=== PATIENT | male | born 1955 | race Caucasian/White ===

== ENCOUNTER 2021-10-03 12:55 | Outpatient (CLI) | payer MEDICARE | END 2021-10-03 12:56 | disposition home or self-care (01) | LOC: TBSIIMAG 12:55 | PROVIDERS: ATTEND Family Medicine | DX: M96.1 Postlaminectomy syndrome, not elsewhere classified (principal); M48.061 Spinal stenosis, lumbar region without neurogenic claudication; M47.26 Other spondylosis with radiculopathy, lumbar region; Z98.890 Other specified postprocedural states | CPT/HCPCS: 72100; 72148; 82565 ==

== ENCOUNTER 2022-02-05 13:44 | Outpatient (CLI) | payer MEDICARE | END 2022-02-05 13:45 | disposition home or self-care (01) | LOC: BICCT 13:44 | PROVIDERS: ATTEND Nurse Practitioner | DX: Z12.2 Encounter for screening for malignant neoplasm of respiratory organs (principal); F17.210 Nicotine dependence, cigarettes, uncomplicated | CPT/HCPCS: 71271 ==

== ENCOUNTER 2022-05-29 09:04 | Outpatient (CLI) | payer MEDICARE | END 2022-05-29 09:05 | disposition home or self-care (01) | LOC: BICULT 09:04 | PROVIDERS: ATTEND Nurse Practitioner | DX: Z13.6 Encounter for screening for cardiovascular disorders (principal) | CPT/HCPCS: 76775 ==

== ENCOUNTER 2022-06-07 17:57 | Observation (INO) | payer MEDICARE ==
[2022-06-07] MEDS ORDERED: Morphine 10 MG/ML VIAL ONE (19:36)
[2022-06-07 22:04] VITALS: BMI 25.7
[2022-06-07] MEDS ORDERED: Ondansetron PF 4 MG/2 ML Vial IVP PRN (22:15)
[2022-06-07] MEDS ORDERED: Ondansetron ODT 4 MG TAB SL PRN (22:15)
[2022-06-07] MEDS ORDERED: Morphine 4 MG/ML VIAL SLOW IVP PRN (22:51)
[2022-06-07] MEDS ORDERED: Ketorolac Tromethamine 30 MG/ML VIAL IVP PRN (22:53)
[2022-06-07] MEDS ORDERED: Acetaminophen 650 MG Suppository PR PRN (22:55)
[2022-06-07] MEDS ORDERED: Acetaminophen 325 MG TAB PO PRN (22:55)
[2022-06-07] MEDS ORDERED: Pantoprazole 40 MG VIAL IVP SCH (23:00)
[2022-06-07] MEDS ORDERED: Nicotine 21 MG PATCH TD SCH (23:59)
[2022-06-08 07:06] LABS: #Basophils 0.1 thou/uL (0.0-0.2); #Eosinphils 0.2 thou/uL (0.0-0.7); #Lymphocytes 3.4 thou/uL (1.20-3.40); #Monocytes 1.1 thou/uL (0.11-0.59); #Neutrophils 6.2 thou/uL (1.40-6.50); %Basophils 0.7 % (0.0-1.0); %Eosinophils 1.9 % (0.0-10.0); %Lymphocytes 30.6 % (21.0-51.0); %Monocytes 10.1 % (0.0-10.0); %Neutrophils 56.8 % (42.0-75.0); Hemoglobin 14.1 g/dL (14.0-18.0); Mean Corpuscular Hemoglobin 32.4 pg (27.0-31.0); Mean Platelet Volume 7.1 fL (7.4-10.4); Platelet Count 345 thou/uL (130-400); RBC Distribution Width 12.5 % (11.5-14.5); Red Blood Cell (RBC) Count 4.34 mill/uL (4.70-6.10)
[2022-06-08 07:23] LABS: Anion Gap 14 mmol/L (10-20); BUN (Urea Nitrogen) 22 mg/dL (8.4-25.7); Calc. Creatinine Clearance 57 mL/min (70-130); Calcium 8.9 mg/dL (7.8-10.44); Carbon Dioxide 23 mmol/L (23-31); Chloride 108 mmol/L (98-107); Estimated GFR 55; Glucose 76 mg/dL (80-115); Potassium 4.5 mmol/L (3.5-5.1); Sodium 140 mmol/L (136-145)
[2022-06-08] MEDS ORDERED: HYDROcodone/Acetaminophen 5/325 mg Tablet PO PRN (08:19)
[2022-06-08] MEDS ORDERED: Pantoprazole 40 MG VIAL IVP SCH (09:00)
[2022-06-08] MEDS ORDERED: Enoxaparin Sodium 40 MG/0.4 ML SYRINGE SC SCH (09:00)
[2022-06-08] MEDS ORDERED: Methocarbamol 500 MG TAB PO PRN (12:39)
[2022-06-08] MEDS ORDERED: Ondansetron PF 4 MG/2 ML Vial IVP PRN (12:39)
[2022-06-08 16:06] VITALS: BP 147/89; TEMP 97.8
== END 2022-06-08 16:01 | disposition home or self-care (01) ==
LOC: ERS 17:57 → T4-A 20:13
PROVIDERS: ADMIT Internal Medicine; ATTEND Internal Medicine
DX: M51.26 Other intervertebral disc displacement, lumbar region (principal); M47.816 Spondylosis without myelopathy or radiculopathy, lumbar region; M47.817 Spondylosis without myelopathy or radiculopathy, lumbosacral region; G89.29 Other chronic pain; I10 Essential (primary) hypertension; E03.9 Hypothyroidism, unspecified; F17.210 Nicotine dependence, cigarettes, uncomplicated; Z79.899 Other long term (current) drug therapy; Z20.822 Contact with and (suspected) exposure to COVID-19
CPT/HCPCS: 72148; 80048; 85025; U0003; U0005; 36415; 96372; 96374; 96375; 96376; C9113; G0378; J1650; J2270; J2405

== ENCOUNTER 2022-06-26 06:49 | Day surgery (SDC) | payer MEDICARE ==
[2022-06-24 15:54] VITALS: BMI 26.6
[2022-06-26 07:43] VITALS: BP 157/102; TEMP 98.6
[2022-06-26] MEDS ORDERED: Iopamidol-M 200 41% 20 ML VIAL ONE (15:09)
== END 2022-06-26 08:55 | disposition home or self-care (01) ==
LOC: RAD 06:49
PROVIDERS: ATTEND Neurological Surgery
PROC: B01B1ZZ Fluoroscopy of Spinal Cord using Low Osmolar Contrast (ICD-10-PCS; principal; 2022-06-26)
DX: M47.26 Other spondylosis with radiculopathy, lumbar region (principal); M51.16 Intervertebral disc disorders with radiculopathy, lumbar region; M48.061 Spinal stenosis, lumbar region without neurogenic claudication; M47.817 Spondylosis without myelopathy or radiculopathy, lumbosacral region; M48.07 Spinal stenosis, lumbosacral region; E03.9 Hypothyroidism, unspecified; I10 Essential (primary) hypertension; F17.210 Nicotine dependence, cigarettes, uncomplicated; Z79.890 Hormone replacement therapy; Z79.899 Other long term (current) drug therapy
CPT/HCPCS: 62304; 72132; Q9966

== ENCOUNTER 2022-07-31 14:23 | Outpatient (CLI) | payer MEDICARE | END 2022-07-31 14:24 | disposition home or self-care (01) | LOC: TBSIIMAG 14:23 | PROVIDERS: ATTEND Neurological Surgery | DX: M54.2 Cervicalgia (principal); M47.812 Spondylosis without myelopathy or radiculopathy, cervical region; M48.02 Spinal stenosis, cervical region | CPT/HCPCS: 72141 ==

== ENCOUNTER 2023-03-26 12:21 | Outpatient (CLI) | payer MEDICARE | END 2023-03-26 12:22 | disposition home or self-care (01) | LOC: BICCT 12:21 | PROVIDERS: ATTEND Nurse Practitioner | DX: R91.1 Solitary pulmonary nodule (principal) | CPT/HCPCS: 71250 ==

== ENCOUNTER 2023-08-12 20:38 | Observation (INO) | payer MEDICARE ==
[2023-08-13 00:51] VITALS: BMI 25.1
[2023-08-13] MEDS ORDERED: Acetaminophen 325 MG TAB PO PRN (01:15)
[2023-08-13] MEDS ORDERED: Ondansetron PF 4 MG/2 ML Vial IVP PRN (01:15)
[2023-08-13] MEDS ORDERED: Nitroglycerin 0.4 MG TAB (25 Tab Bottle) SL PRN (01:15)
[2023-08-13] MEDS ORDERED: hydrALAZINE 20 MG/ML VIAL SLOW IVP PRN (01:17)
[2023-08-13 04:58] LABS: #Eosinphils 0.1 thou/uL (0.0-0.7); #Monocytes 0.7 thou/uL (0.11-0.59); %Basophils 0.4 % (0.0-1.0); %Eosinophils 1.2 % (0.0-10.0); %Lymphocytes 29.9 % (21.0-51.0); %Monocytes 7.3 % (0.0-10.0); %Neutrophils 60.9 % (42.0-75.0); Hemoglobin 13.9 g/dL (14.0-18.0); Mean Corpuscular HGB CONC 33.9 g/dL (32.0-36.0); Mean Corpuscular Volume 94.3 fl (78.0-98.0); Mean Platelet Volume 10.1 fL (7.4-10.4); Platelet Count 334 10x3/uL (130-400); RBC Distribution Width 13.3 % (11.5-14.5); Red Blood Cell (RBC) Count 4.35 mill/uL (4.70-6.10); White Blood Cell (WBC) Count 9.9 10x3/uL (4.8-10.8)
[2023-08-13 05:06] LABS: Hemoglobin A1c 5.5 % (4.0-6.0)
[2023-08-13] MEDS ORDERED: traMADol HCl 50 MG TAB PO PRN (05:13)
[2023-08-13 05:29] LABS: Troponin I Less than 0.010 ng/mL (< 0.028)
[2023-08-13 05:37] LABS: Anion Gap 14 mmol/L (10-20); BUN (Urea Nitrogen) 19 mg/dL (8.4-25.7); Calc. Creatinine Clearance 63 mL/min (70-130); Calcium 8.8 mg/dL (7.8-10.44); Carbon Dioxide 22 mmol/L (23-31); Cardiac Risk 3.7 (Less than 4.5); Chloride 111 mmol/L (98-107); Cholesterol 99 mg/dl (< 200 Desired); Estimated GFR 65; Glucose 84 mg/dL (80-115); HDL Cholesterol 27 mg/dL (>60 Neg Risk); LDL Cholesterol, Calculated 52 mg/dL; Potassium 3.6 mmol/L (3.5-5.1); Sodium 143 mmol/L (136-145); Triglycerides 98 mg/dL (Less than 150)
[2023-08-13] MEDS ORDERED: Levothyroxine Sodium 75 MCG TAB PO SCH (06:00)
[2023-08-13] MEDS ORDERED: hydrALAZINE 10 MG TAB PO PRN (07:39)
[2023-08-13] MEDS ORDERED: Metoprolol Tartrate 50 MG TAB PO SCH (09:00)
[2023-08-13] MEDS ORDERED: Benztropine 1 MG TAB PO SCH (09:00)
[2023-08-13] MEDS ORDERED: Atorvastatin Calcium 20 MG TAB PO SCH (09:00)
[2023-08-13] MEDS ORDERED: Lisinopril 20 MG TAB PO SCH (09:00)
[2023-08-13] MEDS ORDERED: Non-Formulary Item 1 EACH (Levothyroxine Sodium [Levothyroxine Sodium] 75 MCG Capsule) PO SCH (09:00)
[2023-08-13] MEDS ORDERED: Aspirin 81 mg Enteric Coated Tablet PO SCH (09:00)
[2023-08-13] MEDS ORDERED: Fenofibrate Nanocrystallized 145 MG TAB PO SCH (09:00)
[2023-08-13] MEDS ORDERED: cloNIDine 0.1 MG TAB PO PRN (12:47)
[2023-08-13] MEDS ORDERED: Amlodipine 5 MG TAB PO SCH (13:00)
[2023-08-13 14:52] VITALS: BP 173/88; TEMP 97.6
[2023-08-13] MEDS ORDERED: Mirtazapine 15 MG TAB PO SCH (21:00)
[2023-08-13] MEDS ORDERED: Cyclobenzaprine 10 MG TAB PO SCH (21:00)
[2023-08-14] MEDS ORDERED: Amlodipine 5 MG TAB PO SCH (09:00)
== END 2023-08-13 14:47 | disposition home or self-care (01) ==
LOC: 2NO 08-13 00:24
PROVIDERS: ADMIT Internal Medicine; ATTEND Internal Medicine
DX: R07.9 Chest pain, unspecified (principal); I16.0 Hypertensive urgency; I12.9 Hypertensive chronic kidney disease with stage 1 through stage 4 chronic kidney disease, or unspecified chronic kidney disease; N18.31 Chronic kidney disease, stage 3a; E03.9 Hypothyroidism, unspecified; K21.9 Gastro-esophageal reflux disease without esophagitis; E78.5 Hyperlipidemia, unspecified; F17.210 Nicotine dependence, cigarettes, uncomplicated; Z88.8 Allergy status to other drugs, medicaments and biological substances; Z79.899 Other long term (current) drug therapy; Z79.890 Hormone replacement therapy
CPT/HCPCS: 76770; 80048; 80061; 83036; 84484; 85025; 93975; J0360; 36415; 96374; G0378

== ENCOUNTER 2025-08-01 21:08 | Emergency (ER) | payer MEDICARE ==
[2025-08-02 02:23] LABS: #Basophils 0.04 10x3/uL (0.0-0.2); #Eosinophils 0.11 10x3/uL (0.0-0.7); #Monocytes 0.85 10x3/uL (0.11-0.59); #Neutrophils 7.96 10x3/uL (1.40-6.50); %Basophils 0.3 % (0.0-1.0); %Eosinophils 0.9 % (0.0-10.0); %Lymphocytes 27.2 % (21.0-51.0); %Monocytes 6.9 % (0.0-10.0); %Neutrophils 64.3 % (42.0-75.0); Hematocrit 39.3 % (42.0-52.0); Hemoglobin 12.8 g/dL (14.0-18.0); Mean Corpuscular Hemoglobin 30.4 pg (27.0-31.0); Mean Corpuscular Volume 93.3 fL (78.0-98.0); Platelet Count 344 10x3/uL (130-400); Red Blood Cell (RBC) Count 4.21 mill/uL (4.70-6.10); White Blood Cell (WBC) Count 12.38 10x3/uL (4.8-10.8)
[2025-08-02 02:38] LABS: ALT (SGPT) 15 U/L (Less than 45); AST (SGOT) 21 U/L (11-34); Albumin 3.6 g/dL (3.1-4.5); Alkaline Phosphatase 57 U/L (40-110); Anion Gap 13 mmol/L (10-20); BUN (Urea Nitrogen) 17 mg/dL (8.4-25.7); Bilirubin, Total 0.2 mg/dL (0.3-1.2); Calc. Creatinine Clearance 0 mL/min (70-130); Calcium 8.4 mg/dL (7.8-10.44); Carbon Dioxide 23 mmol/L (23-31); Chloride 110 mmol/L (98-107); Globulin 2.8 g/dL (2.4-3.5); Glucose 91 mg/dL (80-115); Lipase 46 U/L (8-78); Magnesium 1.8 mg/dL (1.6-2.6); Potassium 3.8 mmol/L (3.5-5.1); Sodium 142 mmol/L (136-145)
== END 2025-08-02 04:37 | disposition home or self-care (01) ==
LOC: ERS 21:08
DX: R07.9 Chest pain, unspecified (principal); F17.210 Nicotine dependence, cigarettes, uncomplicated
CPT/HCPCS: 70450; 71045; 80053; 83690; 83735; 83880; 84484; 85025; 93005